=== PATIENT | male | born 1965 | race Caucasian/White ===

== ENCOUNTER 2018-01-12 21:47 | Emergency (ER) | payer MEDICAID ==
[2018-01-12] MEDS ORDERED: NS 1,000 ML IV ONE ×2 (21:51→21:56)
--- NOTE | 2018-01-12 21:52 | EDPHY ---
H & P Time Seen by Provider: 01/12/18 21:52 HPI/ROS: HPI CHIEF COMPLAINT: Hyperglycemia, alcohol intoxication HISTORY OF PRESENT ILLNESS: 52-year-old male, presents emergency room by EMS for alcohol intoxication as well as hyperglycemia. He is homeless. He is insulin-dependent diabetic he presents emergency room as EMS was called for intoxicated patient. Upon arrival to the emergency room the patient is highly intoxicated with alcohol. It is reported blood sugars 340 by EMS. Patient states he has been compliant with his insulin. He reports to me drank a large amount of alcohol recently. Past Medical History: Insulin-dependent diabetes Past Surgical History: Denies recent surgery Social History: The homeless, daily alcohol use Family History: Noncontributory ROS REVIEW OF SYSTEMS: A comprehensive 10 point review of systems is otherwise negative aside from elements mentioned in the history of present illness. Exam Constitutional intoxicated, smells of alcohol, triage nursing summary reviewed , vital signs reviewed, awake/alert. Eyes normal conjunctivae and sclera, EOMI, PERRLA. HENT normal inspection, atraumatic, moist mucus membranes, no epistaxis, neck supple/ no meningismus, no raccoon eyes. Respiratory clear to auscultation bilaterally, normal breath sounds, no respiratory distress, no wheezing. Cardiovascular rate normal, regular rhythm, no murmur, no edema, distal pulses normal. Gastrointestinal soft, non-tender, no rebound, no guarding, normal bowel sounds, no distension, no pulsatile mass. Genitourinary no CVA tenderness. Musculoskeletal no midline vertebral tenderness, full range of motion, no calf swelling, no tenderness of extremities, no meningismus, good pulses, neurovascularly intact. Skin pink, warm, & dry, no rash, skin atraumatic. Neurologic awake, alert and oriented x 3, AAOx3, moves all 4 extremities equally, motor intact, sensory intact, CN II-XII intact, normal cerebellar, normal vision, normal speech. Psychiatric normal mood/affect. Heme/Lymph/Immune no lymphadenopathy. Differential Diagnosis: Includes but is not limited to in a particular order acute alcohol intoxication, hyperglycemia, dehydration, electrolyte disturbance , DKA, Infection Medical Decision Making: Plan for this patient IV establishment blood draw, check serum alcohol level, check blood glucose, IV fluids, rule out DKA. Re-evaluation: 2237: Serum alcohol level 583. 0335: Patient re-evaluated this time he has been ambulatory throughout the emergency with a steady gait. He answers my questions appropriately he is, cooperative. No evidence of significant withdrawal at this time. Given the patient is more sober nail his blood sugars come down with IV fluids and subcu insulin. Long discussion with the patient would like to go to detox tonight which will help set up. Librium will be provided to detox. Return precautions discussed with the patient. Additionally I did speak with the patient explained that his alcohol level was extremely high here and very dangerous. He understands that the amount of alcohol that he drank tonight was excessive and very dangerous unsure refrain from drinking. Source: Patient, EMS Constitutional: Initial Vital Signs Temperature (C) 36.7 C 01/12/18 21:56 Heart Rate 113 H 01/12/18 21:56 Respiratory Rate 16 01/12/18 21:56 Blood Pressure 153/107 H 01/12/18 21:56 O2 Sat (%) 97 01/12/18 21:56 O2 Delivery Mode Nasal Cannula O2 (L/minute) 2 Allergies/Adverse Reactions: No Known Allergies Allergy (Unverified 01/12/18 21:58) Home Medications: Medication Instructions Recorded Insulin Aspart Novolog 70/30 01/12/18 Levemir 01/12/18 Lisinopril 01/12/18 Medical Decision Making - Data Points Laboratory Results: Laboratory Results 01/12/18 21:45 01/12/18 21:45 01/12/18 01/12/18 01/12/18 23:53 21:45 21:45 WBC 5.03 10^3/uL 10^3/uL (3.80-9.50) RBC 4.82 10^6/uL 10^6/uL (4.40-6.38) Hgb 13.4 g/dL L g/dL (13.7-17.5) Hct 39.1 % L % (40.0-51.0) MCV 81.1 fL L fL (81.5-99.8) MCH 27.8 pg L pg (27.9-34.1) MCHC 34.3 g/dL g/dL (32.4-36.7) RDW 18.4 % H % (11.5-15.2) Plt Count 347 10^3/uL 10^3/uL (150-400) MPV 8.9 fL fL (8.7-11.7) Neut % (Auto) 24.5 % L % (39.3-74.2) Lymph % (Auto) 61.4 % H % (15.0-45.0) [place] % (Auto) 11.7 % % (4.5-13.0) Eos % (Auto) 0.2 % L % (0.6-7.6) Baso % (Auto) 1.8 % H % (0.3-1.7) Nucleat RBC Rel Count 0.0 % % (0.0-0.2) Absolute Neuts (auto) 1.23 10^3/uL L 10^3/uL (1.70-6.50) Absolute Lymphs (auto) 3.09 10^3/uL H 10^3/uL (1.00-3.00) Absolute Monos (auto) 0.59 10^3/uL 10^3/uL (0.30-0.80) Absolute Eos (auto) 0.01 10^3/uL L 10^3/uL (0.03-0.40) Absolute Basos (auto) 0.09 10^3/uL 10^3/uL (0.02-0.10) Absolute Nucleated RBC 0.00 10^3/uL 10^3/uL (0-0.01) Immature Gran % 0.4 % % (0.0-1.1) Immature Gran # 0.02 10^3/uL 10^3/uL (0.00-0.10) Sodium 137 mEq/L mEq/L (135-145) Potassium 4.9 mEq/L mEq/L (3.3-5.0) Chloride 100 mEq/L mEq/L (97-110) Carbon Dioxide 23 mEq/l mEq/l (22-31) Anion Gap 14 mEq/L mEq/L (8-16) BUN 9 mg/dL mg/dL (7-23) Creatinine 0.8 mg/dL mg/dL (0.7-1.3) Estimated GFR > 60 Glucose 418 mg/dL H mg/dL (70-100) POC Glucose 268 mg/dL H mg/dL (70-100) Calcium 8.6 mg/dL mg/dL (8.5-10.4) Ethyl Alcohol 583 mg/dL H* mg/dL (0-10) Medications Given: Discontinued Medications Sodium Chloride (Ns) 1,000 mls @ 0 mls/hr IV EDNOW ONE; Wide Open PRN Reason: Protocol Stop: 01/12/18 21:52 Last Admin: 01/12/18 22:04 Dose: 1,000 mls Sodium Chloride (Ns) 1,000 mls @ 0 mls/hr IV ONCE ONE PRN Reason: Wide Open Stop: 01/12/18 21:57 Last Admin: 01/12/18 22:04 Dose: 1,000 mls Insulin Human Regular (Humulin R) 6 unit SC EDNOW ONE Stop: 01/12/18 22:40 Last Admin: 01/12/18 22:47 Dose: 6 units Point of Care Test Results: Chemistry 01/12/18 23:53 POC Glucose 268 mg/dL H mg/dL (70-100) Departure - Departure Disposition: Home, Routine, Self-Care Clinical Impression: Hyperglycemia Alcoholic intoxication Qualifiers: Complication of substance-induced condition: uncomplicated Qualified Code(s): F10.920 - Alcohol use, unspecified with intoxication, uncomplicated Condition: Good Instructions: Alcohol Intoxication (ED), Abuse of Alcohol (ED), Diabetic Hyperglycemia (ED), Chlordiazepoxide/Clidinium (By mouth) Referrals: Patient,NotPresent [Unknown] - As per Instructions
[2018-01-12 22:04] LABS: PLATELET COUNT 347 10^3/uL (150-400)
[2018-01-12] MEDS ORDERED: INSULIN REGULAR HUMAN 100 UNIT/ML UNIT SC ONE (22:39)
[2018-01-13 03:34] VITALS: BP 119/93
[2018-01-13] MEDS ORDERED: CHLORDIAZEPOXIDE 25MG PREPK#6 BTL TAKEHOME ONE (03:34)
== END 2018-01-13 03:47 | disposition home or self-care (01) ==
DX: E11.65 Type 2 diabetes mellitus with hyperglycemia (principal); F10.920 Alcohol use, unspecified with intoxication, uncomplicated; E86.9 Volume depletion, unspecified; Z79.4 Long term (current) use of insulin
CPT/HCPCS: G0480; J1815

== ENCOUNTER 2018-01-14 15:49 | Emergency (ER) | payer MEDICAID ==
[2018-01-14] MEDS ORDERED: LORazepam 2 MG/ML INJ IVP ONE (16:02)
--- NOTE | 2018-01-14 16:04 | EDPHY ---
H & P Stated Complaint: ETOH withdrawl, CP - Personal History Current Tetanus/Diphtheria Vaccine: Yes Current Tetanus Diphtheria and Acellular Pertussis (TDAP): Yes - Medical/Surgical History Hx Asthma: No Hx Chronic Respiratory Disease: No Hx Diabetes: Yes Hx Cardiac Disease: Yes Hx Renal Disease: No Hx Cirrhosis: No Hx Alcoholism: No Hx HIV/AIDS: No Hx Splenectomy or Spleen Trauma: No Other PMH: HTN, DM2, cholecystectomy, ETOH - Social History Smoking Status: Never smoked Time Seen by Provider: 01/14/18 15:58 HPI/ROS: CHIEF COMPLAINT: Chest pain possibly related to withdrawal HISTORY OF PRESENT ILLNESS: 52-year-old male history of alcoholism, homelessness, seen emergency department 2 days ago for hyperglycemia alcohol intoxication, [facility], has been to [facility] for the past 2 days, complaining of atraumatic, nonexertional chest pain started noon today. He is feeling tremulous, dyspnea. Denies hallucination. Denies agitation. He denies seizure. Denies prior history of cardiac disease. Denies coagulopathic disorder. PRIMARY CARE PROVIDER:None REVIEW OF SYSTEMS: A ten point review of systems was performed and is negative with the exception of the items mentioned in the HPI PAST MEDICAL & SURGICAL HISTORY: Insulin-dependent diabetes SOCIAL HISTORY:Homeless. Alcoholism. Last drink of alcohol 36 hr ago PHYSICAL EXAM (Prior to examination, patient consented to physical exam, hands were washed and my usual and customary physical exam procedures followed) 1) GENERAL: Well-developed, well-nourished, alert and oriented. Tremulous. 2) HEAD: Normocephalic, atraumatic 3) HEENT: Pupils equal, round, reactive to light bilaterally. Sclera anicteric. Nasopharynx, oropharynx, clear, no lesions. No lesions no bleeding 4) NECK: Full range of motion, no meningeal signs. 5) LUNGS: Clear auscultation bilaterally, no wheezes, no rhonchi, no retractions. 6) HEART: Regular rate and rhythm, no murmur, no heave, no gallop. 7) ABDOMEN: No guarding, no rebound, no focal tenderness, negative McBurney's, negative Faustin's, negative Rovsing's, negative peritoneal sign, 8) MUSCULOSKELETAL: Moving all extremities, no focal areas of tenderness, no obvious trauma. No peripheral edema or discoloration. 9) BACK: No CVA tenderness, no midline vertebral tenderness, no fluctuance, no step-off, no obvious trauma, no visual or palpable abnormality. 10) SKIN: No rash, no petechiae. 11) Psychiatric: Patient is oriented X 3, there is no agitation. Answering questions appropriately. DIFFERENTIAL DIAGNOSIS: In no particular order, including but not limited to acute alcohol withdrawal, myocardial ischemia, pulmonary embolus, chest wall pain, pleural inflammation and pulmonary infectious causes. (Beti Thomas) Constitutional: Initial Vital Signs Temperature (C) 36.6 C 01/14/18 15:54 Heart Rate 107 H 01/14/18 15:54 Respiratory Rate 20 01/14/18 15:54 Blood Pressure 159/112 H 01/14/18 15:54 O2 Sat (%) 97 01/14/18 15:54 O2 Delivery Mode Room Air Allergies/Adverse Reactions: No Known Allergies Allergy (Unverified 01/14/18 15:52) Home Medications: Medication Instructions Recorded Insulin Aspart Novolog 70/30 01/12/18 Levemir 01/12/18 Lisinopril 01/12/18 B Complex with Vitamin C 01/14/18 Magnesium 01/14/18 Metformin HCl 01/14/18 Naltrexone 01/14/18 Omeprazole 01/14/18 Medical Decision Making - Diagnostics EKG Interpretation: EKG interpreted by me shows normal sinus rhythm with normal interval and axis. QRS is normal there is no significant ST elevation or depression. No arrhythmia. The rate is 87 (Shayla,Doug S) Imaging Results: Imaging Impressions Chest X-Ray 01/14/18 16:02 Impression: Normal chest x-ray. Chest/Thorax CTA 01/14/18 16:49 Impression: 1. Negative for pulmonary embolus. 2. Pleural-based 2.5 mm right middle lobe nodule is probably benign. If patient is at increased risk of malignancy, could consider 12 month follow-up. Images reviewed myself (Beti Thomas) ED Course/Re-evaluation: 4:49 p.m.: Patient has an abnormal D-dimer. I recommended CT angiography for evaluation possible pulmonary embolus. Indications risks benefits discussed with patient and he consents. 5:23 p.m.: CT PE study is negative for pulmonary embolus. 5:29 p.m.: Re-evaluation, he has been given 2 mg of IV Ativan as he was previously tremulous. Heart rate in the 70s. He is asymptomatic at this time. Discussed his negative imaging results. He would like to be discharged back to the [facility]. I saw this patient independently based on established practice protocols. Care of patient under supervision of secondary supervising physician Dr Doug Mcguire with whom I discussed case. (Beti Thomas ) - Data Points Laboratory Results: Laboratory Results 01/14/18 16:00 01/14/18 16:00 01/14/18 01/14/18 01/14/18 16:05 16:00 16:00 WBC RBC Hgb Hct MCV MCH MCHC RDW Plt Count MPV Neut % (Auto) Lymph % (Auto) [place] % (Auto) Eos % (Auto) Baso % (Auto) Nucleat RBC Rel Count Absolute Neuts (auto) Absolute Lymphs (auto) Absolute Monos (auto) Absolute Eos (auto) Absolute Basos (auto) Absolute Nucleated RBC Immature Gran % Immature Gran # D-Dimer 0.86 ug/mLFEU H ug/mLFEU (0.00-0.50) Sodium 133 mEq/L L mEq/L (135-145) Potassium 4.1 mEq/L mEq/L (3.3-5.0) Chloride 92 mEq/L L mEq/L (97-110) Carbon Dioxide 27 mEq/l mEq/l (22-31) Anion Gap 14 mEq/L mEq/L (8-16) BUN 7 mg/dL mg/dL (7-23) Creatinine 0.6 mg/dL L mg/dL (0.7-1.3) Estimated GFR > 60 Glucose 288 mg/dL H mg/dL (70-100) Calcium 9.9 mg/dL mg/dL (8.5-10.4) POC Troponin I 0.00 ng/mL ng/mL (0.00-0.08) 01/14/18 16:00 WBC 3.02 10^3/uL L 10^3/uL (3.80-9.50) RBC 5.42 10^6/uL 10^6/uL (4.40-6.38) Hgb 15.0 g/dL g/dL (13.7-17.5) Hct 44.4 % % (40.0-51.0) MCV 81.9 fL fL (81.5-99.8) MCH 27.7 pg L pg (27.9-34.1) MCHC 33.8 g/dL g/dL (32.4-36.7) RDW 17.4 % H % (11.5-15.2) Plt Count 263 10^3/uL 10^3/uL (150-400) MPV 8.7 fL fL (8.7-11.7) Neut % (Auto) 49.8 % % (39.3-74.2) Lymph % (Auto) 34.4 % % (15.0-45.0) [place] % (Auto) 13.9 % H % (4.5-13.0) Eos % (Auto) 0.3 % L % (0.6-7.6) Baso % (Auto) 1.3 % % (0.3-1.7) Nucleat RBC Rel Count 0.0 % % (0.0-0.2) Absolute Neuts (auto) 1.50 10^3/uL L 10^3/uL (1.70-6.50) Absolute Lymphs (auto) 1.04 10^3/uL 10^3/uL (1.00-3.00) Absolute Monos (auto) 0.42 10^3/uL 10^3/uL (0.30-0.80) Absolute Eos (auto) 0.01 10^3/uL L 10^3/uL (0.03-0.40) Absolute Basos (auto) 0.04 10^3/uL 10^3/uL (0.02-0.10) Absolute Nucleated RBC 0.00 10^3/uL 10^3/uL (0-0.01) Immature Gran % 0.3 % % (0.0-1.1) Immature Gran # 0.01 10^3/uL 10^3/uL (0.00-0.10) D-Dimer Sodium Potassium Chloride Carbon Dioxide Anion Gap BUN Creatinine Estimated GFR Glucose Calcium POC Troponin I Medications Given: Discontinued Medications Chlordiazepoxide (Librium 25 Mg Prepack#6) 1 btl TAKEHOME EDNOW ONE Stop: 01/14/18 17:54 Last Admin: 01/14/18 17:57 Dose: 1 btl Chlordiazepoxide HCl (Librium) 25 mg PO EDNOW ONE Stop: 01/14/18 17:54 Last Admin: 01/14/18 17:57 Dose: 25 mg Lorazepam (Ativan Injection) 2 mg IVP EDNOW ONE Stop: 01/14/18 16:03 Last Admin: 01/14/18 16:20 Dose: 2 mg Point of Care Test Results: Chemistry 01/14/18 16:05 POC Troponin I 0.00 ng/mL ng/mL (0.00-0.08) Departure - Departure Disposition: Home, Routine, Self-Care Clinical Impression: Chest pain Qualifiers: Chest pain type: unspecified Qualified Code(s): R07.9 - Chest pain, unspecified Alcohol withdrawal Qualifiers: Complication of substance-induced condition: uncomplicated Qualified Code(s): F10.230 - Alcohol dependence with withdrawal, uncomplicated Condition: Good Instructions: Chest Pain (ED), Alcohol Withdrawal (ED) Additional Instructions: Seek medical attention if you develop new or worsening chest pain, if you develop new or worsening shortness of breath, or any other symptoms that concern you. Referrals: [facility] [Outside] - 1-2 days without fail
--- NOTE | 2018-01-14 16:04 | CPEKG ---
Heart Rate: 87 RR Interval: 690 P-R Interval: 164 QRSD Interval: 80 QT Interval: 360 QTC Interval: 433 P [place]: 67 QRS [place]: 43 T Wave [place]: 39 EKG Severity - ABNORMAL ECG - EKG Impression: SINUS RHYTHM EKG Impression: CONSIDER ANTEROSEPTAL INFARCT Electronically Signed By: Doug Mcguire 14-Jan-2018 18:54:53
[2018-01-14 16:13] LABS: PLATELET COUNT 263 10^3/uL (150-400)
[2018-01-14] MEDS ORDERED: IOPAMIDOL (ISOVUE 370) 100 ML BTL IV ONE (16:55)
[2018-01-14] MEDS ORDERED: CHLORDIAZEPOXIDE 25MG PREPK#6 BTL TAKEHOME ONE (17:53)
[2018-01-14] MEDS ORDERED: chlordiazePOXIDE 25 MG CAP PO ONE (17:53)
[2018-01-14 17:57] VITALS: BP 106/82
== END 2018-01-14 18:25 | disposition home or self-care (01) ==
DX: R07.9 Chest pain, unspecified (principal); F10.230 Alcohol dependence with withdrawal, uncomplicated; I10 Essential (primary) hypertension; E11.9 Type 2 diabetes mellitus without complications; Z79.4 Long term (current) use of insulin
CPT/HCPCS: 84484-PO; 96374; J2060; Q9967